=== PATIENT | female | born 1980 ===

== ENCOUNTER 2020-10-24 19:17 | Emergency (ER) | payer SELFPAY ==
[2020-10-24] MEDS ORDERED: CEPH500 PO (20:55)
== END 2020-10-24 19:30 | disposition left against medical advice (07) ==
LOC: ER 19:17
DX: Z53.21 Procedure and treatment not carried out due to patient leaving prior to being seen by health care provider (principal)

== ENCOUNTER 2020-10-24 20:10 | Emergency (ER) | payer SELFPAY ==
[~2020-10-24] VITALS: Ht 180.3 cm; Wt 95.2 kg
[2020-10-24] MEDS ORDERED: CEPH500 PO (20:55)
== END 2020-10-24 21:05 | disposition home or self-care (01) ==
LOC: ER 20:10
DX: L03.114 Cellulitis of left upper limb (principal)
CPT/HCPCS: 99283; A9270